=== PATIENT | male | born 1995 | race Caucasian/White ===

== ENCOUNTER 2020-08-15 02:29 | Emergency (ER) | payer BC ==
[2020-08-15 02:52] VITALS: BP 126/70; PULSE 95; TEMP 98.2; BMI 22.9
== END 2020-08-15 04:09 | disposition home or self-care (01) ==
LOC: JER 02:29
DX: S20.211A Contusion of right front wall of thorax, initial encounter (principal); R51.9 Headache, unspecified; M25.552 Pain in left hip
CPT/HCPCS: 99283-25; 99284-25

== ENCOUNTER 2021-04-04 11:22 | Emergency (ER) | payer BC ==
[2021-04-04 11:34] VITALS: BP 111/60; PULSE 60; TEMP 98.8; BMI 28.7
[2021-04-04 13:26] LABS: HIV INTERPRETATION NEGATIVE (NEGATIVE)
== END 2021-04-04 13:38 | disposition home or self-care (01) ==
LOC: JERFT 11:22
DX: Z11.4 Encounter for screening for human immunodeficiency virus [HIV] (principal)
CPT/HCPCS: 36415; 87389; 99283-25